=== PATIENT | male | born 1980 | race Caucasian/White ===

== ENCOUNTER 2019-06-17 18:10 | Emergency (ER) | payer OTHER ==
[~2019-06-17] VITALS: Ht 182.9 cm; Wt 108.9 kg
[~2019-06-17 18:10] MED LIST: ADVAIR; ALPRAZOLAM; BACTRIM DS TAB1 EACH PO; CIPROFLOXACIN500 M1 PO; CITALOPRAM; DIFLUCAN150 MG PO; KEFLEX500 MG PO; LEXAPRO; NORCO 5-325 TA1 EACH PO; OXYCONTIN20 M1; XANAX1 MG
[2019-06-17] MEDS ORDERED: CLONAZEPAM 1 MG1 M1 PO (18:28)
[2019-06-17] MEDS ORDERED: NORCO 5-325 TA1 EAC1 PO (20:33)
[2019-06-17] MEDS ORDERED: MEDROLDOSEPACK PO (20:33)
[2019-06-17 20:49] VITALS: BP 144/89
== END 2019-06-17 20:49 | disposition home or self-care (01) ==
LOC: M.ERS 18:10
DX: S39.012A Strain of muscle, fascia and tendon of lower back, initial encounter (principal); S30.0XXA Contusion of lower back and pelvis, initial encounter; F17.210 Nicotine dependence, cigarettes, uncomplicated; Z98.890 Other specified postprocedural states; Z88.6 Allergy status to analgesic agent; Z88.8 Allergy status to other drugs, medicaments and biological substances; W10.9XXA Fall (on) (from) unspecified stairs and steps, initial encounter; Y92.89 Other specified places as the place of occurrence of the external cause; Y93.89 Activity, other specified; Y99.8 Other external cause status

== ENCOUNTER 2020-05-29 16:42 | Emergency (ER) | payer OTHER ==
[~2020-05-29] VITALS: Ht 180.3 cm; Wt 108.9 kg
[~2020-05-29 16:42] MED LIST changes: +CLONAZEPAM 1 MG1 M1 PO; +MEDROLDOSEPACK PO; +NORCO 5-325 TA1 EAC1 PO
[2020-05-29] MEDS ORDERED: ADDERALL 30 MG30 MG PO (16:50)
[2020-05-29] MEDS ORDERED: ADDERALL 10 MG10 MG PO (16:51)
[2020-05-29] MEDS ORDERED: ADDERALL XR 3030 MG PO (16:51)
[2020-05-29 17:37] VITALS: BP 147/97
== END 2020-05-29 17:38 | disposition home or self-care (01) ==
LOC: M.ERS 16:42
DX: S61.412A Laceration without foreign body of left hand, initial encounter (principal); F17.210 Nicotine dependence, cigarettes, uncomplicated; Z88.8 Allergy status to other drugs, medicaments and biological substances; W26.8XXA Contact with other sharp object(s), not elsewhere classified, initial encounter; Y93.89 Activity, other specified; Y92.89 Other specified places as the place of occurrence of the external cause; Y99.8 Other external cause status

== ENCOUNTER 2021-06-11 19:50 | Emergency (ER) | payer OTHER ==
[~2021-06-11] VITALS: Ht 180.3 cm; Wt 102.1 kg
[~2021-06-11 19:50] MED LIST changes: +ADDERALL 10 MG10 MG PO; +ADDERALL 30 MG30 MG PO; +ADDERALL XR 3030 MG PO
[2021-06-11] MEDS ORDERED: KEFLEX250 MG PO (22:16)
[2021-06-11 22:27] VITALS: BP 150/88
== END 2021-06-11 22:28 | disposition home or self-care (01) ==
LOC: M.ERS 19:50
DX: S61.316A Laceration without foreign body of right little finger with damage to nail, initial encounter (principal); F17.210 Nicotine dependence, cigarettes, uncomplicated; Z98.890 Other specified postprocedural states; Z79.899 Other long term (current) drug therapy; Z88.6 Allergy status to analgesic agent; Z88.1 Allergy status to other antibiotic agents; W22.8XXA Striking against or struck by other objects, initial encounter; Y93.89 Activity, other specified; Y92.89 Other specified places as the place of occurrence of the external cause; Y99.8 Other external cause status